=== PATIENT | female | born 1970 | race Caucasian/White ===

== ENCOUNTER 2023-04-14 16:00 | Emergency (ER) | payer BC ==
[2023-04-14 16:11] VITALS: BP 121/67; PULSE 83; RESP 16; TEMP 98.3; BMI 22.1
== END 2023-04-14 19:36 | disposition home or self-care (01) ==
LOC: JER 16:00
DX: R51.9 Headache, unspecified (principal); R11.0 Nausea
CPT/HCPCS: 70450-TC; 99284-25